=== PATIENT | male | born 1990 | race American Indian/Alaskan Native ===

== ENCOUNTER 2017-02-19 11:32 | Emergency (ER) | payer OTHER ==
[2017-02-19 11:46] VITALS: BP 124/81; PULSE 76; RESP 18; TEMP 99.2; O2SAT 99
--- NOTE | 2017-02-19 11:54 | C.PDOC ---
History Of Present Illness Patient complains of sore throat for one week, worse past 2 days hurts to swallow. Denies fever, cough, SOB. Time Seen by Provider: 02/19/17 11:48 Chief Complaint (Nursing): ENT Problem History Per: Patient History/Exam Limitations: None Onset/Duration Of Symptoms: Days (1 week) Past Medical History Reviewed: Historical Data, Nursing Documentation, Vital Signs Vital Signs: Last Vital Signs Temp 99.2 F 02/19/17 11:44 Pulse 76 02/19/17 11:44 Resp 18 02/19/17 11:44 BP 124/81 02/19/17 11:44 Pulse Ox 99 02/19/17 12:40 - Medical History PMH: No Chronic Diseases Surgical History: No Surg Hx Family History: States: No Known Family Hx - Social History Hx Alcohol Use: Yes Hx Substance Use: No - Immunization History Hx Tetanus Toxoid Vaccination: No Hx Influenza Vaccination: No Hx Pneumococcal Vaccination: No Review Of Systems Constitutional: Negative for: Fever, Malaise Eyes: Negative for: Pain, Vision Change ENT: Positive for: Throat Pain (Sore throat ), Other ((+) Pain with swallowing.) . Negative for: Ear Pain, Nose Pain, Nose Congestion Respiratory: Negative for: Cough, Shortness of Breath, Sputum Gastrointestinal: Negative for: Nausea, Vomiting, Abdominal Pain, Diarrhea Musculoskeletal: Negative for: Arm Pain Neurological: Negative for: Headache, Dizziness Physical Exam - Physical Exam Appears: Non-toxic, No Acute Distress Skin: Warm, Dry, No Rash Head: Atraumatic, Normacephalic Eye(s): bilateral: Normal Inspection Ear(s): Bilateral: Normal (no erythema) Nose: Normal Oral Mucosa: Moist Throat: Erythema, No Exudate, No Drooling, No Mass Neck: Normal, Normal ROM, Supple Lymphatic: No Adenopathy Chest: Symmetrical, No Tenderness Cardiovascular: Rhythm Regular, No Murmur Respiratory: Normal Breath Sounds, No Rales, No Rhonchi, No Stridor, No Wheezing Extremity: Bilateral: Atraumatic, Normal Color And Temperature, Normal ROM Neurological/Psych: Oriented x3, Normal Speech, Normal Motor Gait: Steady ED Course And Treatment O2 Sat by Pulse Oximetry: 99 (RA) Pulse Ox Interpretation: Normal Medical Decision Making Medical Decision Making: patient with sore throat for one week. Throat exam erythematous, uvula midline, no signs of peritonsillar abscess. Will treat with amoxicillin and instruct patient to follow up outpatient Disposition Counseled Patient/Family Regarding: Diagnosis, Need For Followup, Rx Given - Disposition Referrals: [facility] [Outside] [facility] [Outside] Disposition: HOME/ ROUTINE Disposition Time: 11:51 Condition: STABLE Additional Instructions: Take Tylenol or Motrin alternating every 4-6 hours for Fever 100.4F or higher. Rest and drink plenty of fluids to prevent dehydration. Try vanilla ice cream to improve eating/drinking, this is cold soothing and tastes good. May also try lozenges or cepacol spary over the counter. 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 - Scribe Statement The provider has reviewed the documentation as recorded by the Scribe Katheryn Mirza All medical record entries made by the Juibellie were at my direction and personally dictated by me. I have reviewed the chart and agree that the record accurately reflects my personal performance of the history, physical exam, medical decision making, and the department course for this patient. I have also personally directed, reviewed, and agree with the discharge instructions and disposition.
== END 2017-02-19 12:45 | disposition home or self-care (01) ==
LOC: C.ER 11:32
DX: J02.9 Acute pharyngitis, unspecified (principal)

== ENCOUNTER 2018-01-26 23:47 | Emergency (ER) | payer OTHER ==
[2018-01-27] VITALS: BP 136/85; PULSE 63; RESP 20; TEMP 98.8; O2SAT 98
[2018-01-27] MEDS ORDERED: Acetaminophen-Codeine 300/30 mg Tab PO STA (00:13)
--- NOTE | 2018-01-27 00:15 | C.PDOC ---
History Of Present Illness 27 year old male presents to ED with complaints of right mouth pain from rotting teeth for few days. He states he noticed swelling to his lower gum and pain worsened. He was able to get appointment with dentist for tomorrow, however needs something for pain. Denies any fever or bleeding. Time Seen by Provider: 01/27/18 00:06 Chief Complaint (Nursing): Dental Pain History Per: Patient History/Exam Limitations: no limitations Onset/Duration Of Symptoms: Days Current Symptoms Are (Timing): Still Present Quality: Positive for: "Pain" Additional History Per: Patient Past Medical History Reviewed: Historical Data, Nursing Documentation, Vital Signs Vital Signs: Last Vital Signs Temp 98.8 F 01/26/18 23:57 Pulse 63 01/26/18 23:57 Resp 20 01/26/18 23:57 BP 136/85 01/26/18 23:57 Pulse Ox 98 01/27/18 01:22 - Medical History PMH: No Chronic Diseases Surgical History: No Surg Hx Family History: States: No Known Family Hx - Social History Hx Alcohol Use: No Hx Substance Use: No - Immunization History Hx Tetanus Toxoid Vaccination: No Hx Influenza Vaccination: No Hx Pneumococcal Vaccination: No Review Of Systems Except As Marked, All Systems Reviewed And Found Negative. Constitutional: Negative for: Fever, Chills ENT: Positive for: Other (right sided dental pain) Physical Exam - Physical Exam Appears: Non-toxic Skin: Warm, Dry Head: Normacephalic Eye(s): bilateral: Normal Inspection, EOMI Oral Mucosa: Moist Teeth: Caries (multiple caries), Other (poor dentition; right lower molar with large cavity) Gingiva: Swelling, No Abscess Throat: Normal, No Erythema, No Exudate, No Drooling, No Mass Neck: Normal ROM, Supple Chest: Symmetrical Cardiovascular: Rhythm Regular Respiratory: Normal Breath Sounds Neurological/Psych: Oriented x3 ED Course And Treatment O2 Sat by Pulse Oximetry: 98 (RA) Pulse Ox Interpretation: Normal Medical Decision Making Medical Decision Making: Impression: Dental pain Plan: Tylenol #3 and Penicillin Re-Eval: Patient remained afebrile and reports pain is improving. He is stable for discharge. Instructed to follow up with dentist as scheduled tomorrow. Disposition Counseled Patient/Family Regarding: Diagnosis, Need For Followup, Rx Given - Disposition Referrals: [facility] [Outside] Disposition: HOME/ ROUTINE Disposition Time: 00:30 Condition: GOOD Additional Instructions: Follow up with the Dentist Take pain medicine as needed Take antibiotic Prescriptions: Acetaminophen with Codeine [Tylenol with Codeine No. 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 - Scribe Statement The provider has reviewed the documentation as recorded by the Yecenia Nevarez Provider Attestation: All medical record entries made by the Yecenia were at my direction and personally dictated by me. I have reviewed the chart and agree that the record accurately reflects my personal performance of the history, physical exam, medical decision making, and the department course for this patient. I have also personally directed, reviewed, and agree with the discharge instructions and disposition.
[2018-01-27] MEDS ORDERED: Acetaminophen-Codeine 300/30 mg Tab PO ONE (00:20)
== END 2018-01-27 00:30 | disposition home or self-care (01) ==
LOC: C.ER 23:47
DX: K02.9 Dental caries, unspecified (principal); K05.10 Chronic gingivitis, plaque induced